=== PATIENT | male | born 1975 | race American Indian/Alaskan Native ===

== ENCOUNTER 2020-08-06 21:43 | Emergency (ER) | payer SELFPAY ==
[2020-08-07] MEDS ORDERED: KETOROLAC 30 MG/1 ML INJ IM ONE (00:12)
[2020-08-07] MEDS ORDERED: dexAMETHasone 20 MG/5 ML VIAL IM ONE (00:12)
--- NOTE | 2020-08-07 00:43 | Emergency Department Report ---
ED General Adult HPI - General Chief complaint: Neuro Symptoms/Deficit Stated complaint: RT SIDE FACIAL NUMBNESS Source: patient Mode of arrival: Ambulatory Limitations: No Limitations - History of Present Illness Initial comments: Patient is 45-year-old -[place] male with no past medical history presents to the ED with complaint of acute onset persistent right facial n umbness and tingling with the gross palsy with every facial expression, bilateral itchy eyes with significant tearing on the right eye and photosensitivity for the last 12 hours. Patient denies traumatic injury, dizziness, syncope, headache, chest pain, shortness of breath, fever, chills, sore throat, right facial weakness, speech changes, change in vision, numbness and tingling or weakness of upper and lower extremities bilaterally, cough, nausea and vomiting or diarrhea. MD Complaint: right facial palsy; right eye tearing -: Sudden, hour(s) (12) Location: face (right), eyes (right) Radiation: non-radiation Severity scale (0 -10): 7 Quality: aching, sharp Consistency: constant Improves with: none Worsens with: none Associated Symptoms: denies other symptoms, headaches. denies: confusion, chest pain, cough, diaphoresis, fever/chills, loss of appetite, malaise, nausea/vomiting, rash, seizure, shortness of breath, syncope, weakness - Related Data Previous Rx's Medication Instructions Recorded Last Taken Type Acyclovir [Zovirax Tab] 400 mg PO Q8H #30 tab 08/07/20 Unknown Rx Cetirizine HCl [Zyrtec 10mg tab] 10 mg PO DAILY #30 tablet 08/07/20 Unknown Rx Ibuprofen [Motrin] 800 mg PO Q8HR PRN #30 tablet 08/07/20 Unknown Rx Olopatadine HCl [Patanol 0.1%] 1 drop OP BID #5 ml 08/07/20 Unknown Rx predniSONE [Deltasone] 60 mg PO QDAY #15 tab 08/07/20 Unknown Rx ED Review of Systems ROS: Stated complaint: RT SIDE FACIAL NUMBNESS Other details as noted in HPI Constitutional: denies: chills, fever Eyes: eye pain (right), eye discharge (tearing). denies: vision change ENT: other (right facial palsy). denies: ear pain, throat pain Respiratory: denies: cough, shortness of breath, SOB with exertion, SOB at rest, wheezing Cardiovascular: denies: chest pain, palpitations Endocrine: no symptoms reported Gastrointestinal: denies: abdominal pain, nausea, vomiting, diarrhea Genitourinary: denies: urgency, dysuria Musculoskeletal: denies: back pain, joint swelling, arthralgia Skin: denies: rash, lesions Neurological: headache. denies: weakness, paresthesias Psychiatric: denies: anxiety, depression Hematological/Lymphatic: denies: easy bleeding, easy bruising ED Past Medical Hx - Past Medical History Previous Medical History?: No - Surgical History Past Surgical History?: No - Social History Smoking Status: Never Smoker Substance Use Type: None - Medications Home Medications: Home Medications Medication Instructions Recorded Confirmed Last Taken Type Acyclovir [Zovirax Tab] 400 mg PO Q8H #30 tab 08/07/20 Unknown Rx Cetirizine HCl [Zyrtec 10mg tab] 10 mg PO DAILY #30 tablet 08/07/20 Unknown Rx Ibuprofen [Motrin] 800 mg PO Q8HR PRN #30 tablet 08/07/20 Unknown Rx Olopatadine HCl [Patanol 0.1%] 1 drop OP BID #5 ml 08/07/20 Unknown Rx predniSONE [Deltasone] 60 mg PO QDAY #15 tab 08/07/20 Unknown Rx ED Physical Exam - General Limitations: No Limitations General appearance: alert, in no apparent distress - Head Head exam: Present: atraumatic, normocephalic, normal inspection - Eye Eye exam: Present: normal appearance, PERRL, EOMI Pupils: Present: normal accommodation - ENT ENT exam: Present: normal exam, normal orophraynx, mucous membranes moist, TM's normal bilaterally, normal external ear exam, other (Gross right facial palsy) - Neck Neck exam: Present: normal inspection, full ROM - Respiratory Respiratory exam: Present: normal lung sounds bilaterally. Absent: respiratory distress, wheezes, rales, rhonchi, stridor, chest wall tenderness, accessory muscle use, decreased breath sounds, prolonged expiratory - Cardiovascular Cardiovascular Exam: Present: regular rate, normal rhythm, normal heart sounds. Absent: systolic murmur, diastolic murmur, rubs, gallop - GI/Abdominal GI/Abdominal exam: Present: soft, normal bowel sounds. Absent: tenderness, guarding, hyperactive bowel sounds, hypoactive bowel sounds - Extremities Exam Extremities exam: Present: normal inspection, full ROM, normal capillary refill - Back Exam Back exam: Present: normal inspection, full ROM. Absent: tenderness, CVA tenderness (R), CVA tenderness (L), muscle spasm, paraspinal tenderness, vertebral tenderness - Neurological Exam Neurological exam: Present: alert, oriented X3, CN II-XII intact, normal gait, reflexes normal - Psychiatric Psychiatric exam: Present: normal affect, normal mood - Skin Skin exam: Present: warm, dry, intact, normal color. Absent: rash ED Course Vital Signs 08/06/20 21:50 Temperature 98.3 F Pulse Rate 83 Respiratory 18 Rate Blood Pressure 114/68 O2 Sat by Pulse 97 Oximetry ED Medical Decision Making - Medical Decision Making This is 45-year-old -[place] male with no past medical history presents to the ED with complaint of acute onset persistent right facial numbness and tingling with the gross palsy with every facial expression, bilateral itchy eyes with significant tearing on the right eye and photosensitivity for the last 12 hours. In the ED, patient is alert and oriented x3 and is not in distress. Patient was treated in the ED with steroids and also pain medications. Patient was discharged home on oral steroids, oral antiviral medications, pain medications and was advised to follow-up with his primary care physician in 5 to 7 days for reevaluation or return to the ED immediately if symptoms get worse. - Differential Diagnosis Bond's palsy; URI; Rhinitis; Allergic conjunctivitis Critical care attestation.: If time is entered above; I have spent that time in minutes in the direct care of this critically ill patient, excluding procedure time. ED Disposition Clinical Impression: Right-sided Bond's palsy Allergic conjunctivitis and rhinitis Qualifiers: Laterality: bilateral Qualified Code(s): H10.13 - Acute atopic conjunctivitis, bilateral; J30.9 - Allergic rhinitis, unspecified Disposition: - TO HOME OR SELFCARE Is pt being admited?: No Does the pt Need Aspirin: No Condition: Stable Instructions: Bond Palsy (ED) Additional Instructions: Take medication with food, drink plenty of fluids and follow-up with your primary care physician in 7 to 10 days for reevaluation. Return to the ED immediately if symptoms get worse. Prescriptions: predniSONE [Deltasone] 60 mg PO QDAY #15 tab Ibuprofen [Motrin] 800 mg PO Q8HR PRN #30 tablet PRN Reason: Pain , Severe (7-10) Olopatadine HCl [Patanol 0.1%] 1 drop OP BID #5 ml Acyclovir [Zovirax Tab] 400 mg PO Q8H #30 tab Cetirizine HCl [Zyrtec 10mg tab] 10 mg PO DAILY #30 tablet Referrals: [facility] [Provider Group] - 3-5 Days Forms: Work/School Release Form(ED) Time of Disposition: 00:46 Print Language: POLISH
[2020-08-07 01:50] VITALS: BP 118/79
== END 2020-08-07 01:33 | disposition home or self-care (01) ==
LOC: ED 21:43
DX: G51.0 Bell's palsy (principal); H10.13 Acute atopic conjunctivitis, bilateral
CPT/HCPCS: 96372; 99282; J1100; J1885